=== PATIENT | female | born 1960 | race Caucasian/White ===

== ENCOUNTER → 2016-06-09 | Outpatient (REF) | payer OTHER ==
[~2016-06-09] MED LIST: /DULO30CA PO; /FENT75PA TD; /LANS30GR PO; /ONDA4TA PO; AMIT25TA2 PO; CALCIUM MAGNESIUM PO; CETI5TAB2 OR; COLA100C2 PO; COMPAZINE PR; EXCETAB OR; FAMO20TA2 PO; FLEXERIL PO; FLOV50AE; GLUC500T PO; GLYCOLAX POWDER PO; GLYCOPYRROLATE PO; HYDR25TA6 PO; LIDO5DIS PO; METH10TA2 PO; NEUR100C PO; SENNSYP PO; ULTRTA PO; [UNRECOGNIZED DRUG - CODE] PV; [UNRECOGNIZED DRUG - OTHER]; [UNRECOGNIZED DRUG - OTHER] PO; [UNRECOGNIZED DRUG - OTHER] TD
[2016-06-09 12:29] LABS: MEAN CORPUSCULAR HEMOGLOBIN 28.8 pg (27.0-33.0); MEAN CORPUSCULAR HGB CONC 32.8 g/dl (32.0-36.5); MEAN CORPUSCULAR VOLUME 87.8 fl (80.0-96.0); RED CELL DISTRIBUTION WIDTH 14.6 % (11.5-14.5); WHITE BLOOD COUNT 9.9 K/mm3 (4.0-10.0)
[2016-06-09 12:38] LABS: CALCIUM LEVEL 9.1 MG/DL (8.5-10.1); CREATININE FOR GFR 1.19 MG/DL (0.55-1.02); GLOMERULAR FILTRATION RATE 50.1 (>51); POTASSIUM SERUM 3.8 MEQ/L (3.5-5.1)
== END | disposition home or self-care (01) ==
LOC: M SFHCCLAY 11:08
PROVIDERS: ATTEND Family Medicine
DX: J40 Bronchitis, not specified as acute or chronic (principal); M79.1 Myalgia; G90.50 Complex regional pain syndrome I, unspecified; E78.2 Mixed hyperlipidemia

== ENCOUNTER → 2016-10-27 | Outpatient (REF) | payer OTHER | LOC: M SFHCCLAY 13:52 | PROVIDERS: ATTEND Family Medicine | DX: L30.9 Dermatitis, unspecified (principal) ==

== ENCOUNTER → 2017-11-09 | Outpatient (REF) | payer OTHER ==
[2017-11-09 12:11] LABS: ALBUMIN 4.2 GM/DL (3.2-5.2); ALBUMIN/GLOBULIN RATIO 1.14 (1.00-1.93); ALKALINE PHOSPHATASE 110 U/L (45-117); ALT/SGPT 20 U/L (12-78); ANION GAP 8 MEQ/L (8-16); AST/SGOT 13 U/L (7-37); BILIRUBIN,TOTAL 0.6 MG/DL (0.2-1.0); BLOOD UREA NITROGEN 19 MG/DL (7-18); CALCIUM LEVEL 9.1 MG/DL (8.5-10.1); CARBON DIOXIDE LEVEL 25 MEQ/L (21-32); CHLORIDE LEVEL 107 MEQ/L (98-107); CHOLESTEROL LEVEL 221 MG/DL (<200); CHOLESTEROL RISK RATIO 4.702 (<5); CREATININE FOR GFR 1.17 MG/DL (0.55-1.30); GLOMERULAR FILTRATION RATE 50.9 (>51); GLUCOSE, FASTING 92 MG/DL (70-100); HDL CHOLESTEROL 47 MG/DL (>40); LDL CHOLESTEROL 138.8 MG/DL (<100); NON-HDL-C 174 MG/DL; SODIUM LEVEL 140 MEQ/L (136-145); TOTAL PROTEIN 7.9 GM/DL (6.4-8.2); TRIGLYCERIDES LEVEL 176 MG/DL (<150)
== END ==
LOC: M SFHCCLAY 09:19
DX: G90.50 Complex regional pain syndrome I, unspecified (principal); E78.2 Mixed hyperlipidemia
CPT/HCPCS: 84443

== ENCOUNTER → 2017-11-23 | Outpatient (CLI) | payer OTHER | LOC: M RAD 10:12 | DX: M54.17 Radiculopathy, lumbosacral region (principal); E78.2 Mixed hyperlipidemia | CPT/HCPCS: 72148 ==

== ENCOUNTER → 2018-03-20 | Outpatient (REF) | payer OTHER | LOC: M SFHCCLAY 08:32 | DX: M19.90 Unspecified osteoarthritis, unspecified site (principal); I10 Essential (primary) hypertension ==

== ENCOUNTER → 2019-08-07 | Outpatient (CLI) | payer OTHER ==
[~2019-08-07] MED LIST changes: -/DULO30CA PO; -/FENT75PA TD; -/ONDA4TA PO; +CYMB1CAP5 PO; +FENT1DIS16 TD; +ONDA-1 PO
== END ==
LOC: M LABSMTC 11:01
PROVIDERS: ATTEND Family Medicine
DX: Z11.59 Encounter for screening for other viral diseases (principal); Z20.828 Contact with and (suspected) exposure to other viral communicable diseases

== ENCOUNTER → 2020-04-12 | Outpatient (CLI) | payer OTHER | LOC: M LABSMTC 14:07 | PROVIDERS: ATTEND Family Medicine | DX: Z20.828 Contact with and (suspected) exposure to other viral communicable diseases (principal) ==

== ENCOUNTER → 2020-05-20 | Outpatient (REF) | payer OTHER ==
[2020-05-20 16:20] LABS: HEMATOCRIT 38.5 % (36.0-47.0); HEMOGLOBIN 12.3 g/dl (12.0-15.5); MEAN CORPUSCULAR HEMOGLOBIN 29.5 pg (27.0-33.0); MEAN CORPUSCULAR HGB CONC 31.9 g/dl (32.0-36.5); MEAN CORPUSCULAR VOLUME 92.3 fl (80.0-96.0); PLATELET COUNT, AUTOMATED 247 10^3/uL (150-450); RED BLOOD COUNT 4.17 10^6/uL (4.00-5.40); WHITE BLOOD COUNT 7.5 10^3/uL (4.0-10.0)
[2020-05-20 16:44] LABS: ALBUMIN 4.1 GM/DL (3.2-5.2); BILIRUBIN,TOTAL 0.4 MG/DL (0.2-1.0); CALCIUM LEVEL 9.4 MG/DL (8.5-10.1); CREATININE FOR GFR 1.04 MG/DL (0.55-1.30); GLOMERULAR FILTRATION RATE 57.9 (>51); POTASSIUM SERUM 4.6 MEQ/L (3.5-5.1); TOTAL PROTEIN 7.4 GM/DL (6.4-8.2)
== END ==
LOC: M SFHCCLAY 09:51
PROVIDERS: ATTEND Family Medicine
DX: G90.50 Complex regional pain syndrome I, unspecified (principal); F33.40 Major depressive disorder, recurrent, in remission, unspecified; K21.00 Gastro-esophageal reflux disease with esophagitis, without bleeding; I10 Essential (primary) hypertension; M79.7 Fibromyalgia

== ENCOUNTER → 2021-04-08 | Outpatient (REF) | payer OTHER ==
[2021-04-08 16:25] LABS: BASO % 0.5 % (0.0-1.0); EOS # 0.2 10^3/uL (0.0-0.5); EOS % 2.2 % (0.0-3.0); HEMATOCRIT 38.1 % (36.0-47.0); HEMOGLOBIN 12.4 g/dl (12.0-15.5); LYMPH # 2.7 10^3/uL (1.5-5.0); LYMPH % 30.8 % (24.0-44.0); MEAN CORPUSCULAR HEMOGLOBIN 30.1 pg (27.0-33.0); MEAN CORPUSCULAR HGB CONC 32.5 g/dl (32.0-36.5); MEAN CORPUSCULAR VOLUME 92.5 fl (80.0-96.0); MONO # 0.5 10^3/uL (0.0-0.8); MONO % 5.8 % (2.0-8.0); NEUTROPHILS # 5.3 10^3/uL (1.5-8.5); NEUTROPHILS % 60.4 % (36.0-66.0); PLATELET COUNT, AUTOMATED 299 10^3/uL (150-450); RED BLOOD COUNT 4.12 10^6/uL (4.00-5.40); WHITE BLOOD COUNT 8.8 10^3/uL (4.0-10.0)
[2021-04-08 16:46] LABS: ALBUMIN 4.2 GM/DL (3.2-5.2); BILIRUBIN,TOTAL 0.3 MG/DL (0.2-1.0); C REACTIVE PROTEIN QUANTITATIV 0.34 MG/DL (0.00-0.30); CALCIUM LEVEL 9.5 MG/DL (8.5-10.1); CREATININE FOR GFR 1.15 MG/DL (0.55-1.30); GLOMERULAR FILTRATION RATE 51.4 (>51); POTASSIUM SERUM 3.3 MEQ/L (3.5-5.1); TOTAL PROTEIN 7.5 GM/DL (6.4-8.2)
[2021-04-08 16:53] LABS: ERYTHROCYTE SEDIMENTATION RATE 17 mm/hr (0-30)
[2021-04-11 23:07] LABS: ANA (HEP2) Negative (.); CYCLIC CITRULLINATED PEPTIDE 6 units (0-19)
== END ==
LOC: M SFHCCLAY 11:23
PROVIDERS: ATTEND Family Medicine
DX: G90.50 Complex regional pain syndrome I, unspecified (principal); I73.00 Raynaud's syndrome without gangrene; I10 Essential (primary) hypertension

== ENCOUNTER → 2021-12-14 | Outpatient (REF) | payer OTHER ==
[2021-12-14 11:47] LABS: BASO # 0.1 10^3/uL (0.0-0.2); BASO % 0.7 % (0.0-1.0); EOS # 0.1 10^3/uL (0.0-0.5); HEMATOCRIT 39.9 % (36.0-47.0); HEMOGLOBIN 13.3 g/dl (12.0-15.5); LYMPH # 2.7 10^3/uL (1.5-5.0); LYMPH % 30.9 % (24.0-44.0); MEAN CORPUSCULAR HGB CONC 33.3 g/dl (32.0-36.5); MONO # 0.4 10^3/uL (0.0-0.8); MONO % 4.6 % (2.0-8.0); NEUTROPHILS # 5.4 10^3/uL (1.5-8.5); NEUTROPHILS % 62.5 % (36.0-66.0); PLATELET COUNT, AUTOMATED 296 10^3/uL (150-450); RED BLOOD COUNT 4.29 10^6/uL (4.00-5.40); WHITE BLOOD COUNT 8.6 10^3/uL (4.0-10.0)
[2021-12-14 12:54] LABS: ALBUMIN 4.3 GM/DL (3.2-5.2); BILIRUBIN,TOTAL 0.4 MG/DL (0.2-1.0); CALCIUM LEVEL 9.7 MG/DL (8.8-10.2); CHOLESTEROL RISK RATIO 4.36 (<5); CREATININE FOR GFR 1.35 MG/DL (0.55-1.30); GLOMERULAR FILTRATION RATE 42.6 (>45); POTASSIUM SERUM 3.3 MEQ/L (3.5-5.1); TOTAL PROTEIN 7.7 GM/DL (6.4-8.2)
== END ==
LOC: M SFHCCLAY 08:48
PROVIDERS: ATTEND Family Medicine
DX: Z20.9 Contact with and (suspected) exposure to unspecified communicable disease (principal)

== ENCOUNTER → 2022-04-07 | Outpatient (REF) | payer OTHER ==
[2022-04-07 13:37] LABS: BILIRUBIN,TOTAL 0.4 MG/DL (0.3-1.2); CALCIUM LEVEL 9.5 MG/DL (8.3-10.6); CREATININE FOR GFR 1.06 MG/DL (0.55-1.30); GLOMERULAR FILTRATION RATE 56.3 (>45); POTASSIUM SERUM 3.7 MMOL/L (3.5-5.1); TOTAL PROTEIN 7.5 G/DL (5.7-8.2)
== END ==
LOC: M SFHCCLAY 09:40
PROVIDERS: ATTEND Family Medicine
DX: F33.40 Major depressive disorder, recurrent, in remission, unspecified (principal); I10 Essential (primary) hypertension; E87.6 Hypokalemia

== ENCOUNTER → 2022-08-11 | Outpatient (CLI) | payer OTHER | LOC: M CLY 11:49 | PROVIDERS: ATTEND Family Medicine | DX: U09.9 Post COVID-19 condition, unspecified (principal); R06.00 Dyspnea, unspecified ==

== ENCOUNTER → 2023-01-30 | Outpatient (REF) | payer OTHER ==
[2023-01-30 12:19] LABS: BASO # 0.1 10^3/uL (0.0-0.2); BASO % 0.5 % (0.0-1.0); EOS # 0.1 10^3/uL (0.0-0.5); HEMATOCRIT 40.7 % (36.0-47.0); HEMOGLOBIN 13.7 g/dl (12.0-15.5); LYMPH # 2.9 10^3/uL (1.5-5.0); LYMPH % 29.4 % (24.0-44.0); MEAN CORPUSCULAR HEMOGLOBIN 31.9 pg (27.0-33.0); MEAN CORPUSCULAR HGB CONC 33.7 g/dl (32.0-36.5); MEAN CORPUSCULAR VOLUME 94.9 fl (80.0-96.0); MONO # 0.5 10^3/uL (0.0-0.8); MONO % 5.2 % (2.0-8.0); NEUTROPHILS # 6.3 10^3/uL (1.5-8.5); NEUTROPHILS % 63.7 % (36.0-66.0); PLATELET COUNT, AUTOMATED 259 10^3/uL (150-450); RED BLOOD COUNT 4.29 10^6/uL (4.00-5.40); WHITE BLOOD COUNT 9.8 10^3/uL (4.0-10.0)
[2023-01-30 12:58] LABS: THYROID STIMULATING HORMONE 3.27 uIU/ML (0.55-4.78)
[2023-01-30 13:07] LABS: BILIRUBIN,TOTAL 0.4 MG/DL (0.3-1.2); CALCIUM LEVEL 9.5 MG/DL (8.3-10.6); CHOLESTEROL RISK RATIO 6.28 (<5); CREATININE FOR GFR 1.1 MG/DL (0.55-1.30); GLOMERULAR FILTRATION RATE 53.8 (>45); HDL CHOLESTEROL 43.6 MG/DL (>40); LDL CHOLESTEROL 174.8 MG/DL (<100); NON-HDL-C 230.4 MG/DL; POTASSIUM SERUM 3.8 MMOL/L (3.5-5.1); TOTAL PROTEIN 7.2 G/DL (5.7-8.2)
== END ==
LOC: M SFHCCLAY 08:04
PROVIDERS: ATTEND Family Medicine
DX: I10 Essential (primary) hypertension (principal); G90.50 Complex regional pain syndrome I, unspecified; E78.2 Mixed hyperlipidemia

== ENCOUNTER → 2024-06-19 | Outpatient (REF) | payer OTHER ==
[2024-06-19 19:18] LABS: ALBUMIN 4.3 G/DL (3.2-5.2); BILIRUBIN,TOTAL 0.5 MG/DL (0.3-1.2); CHOLESTEROL RISK RATIO 6.16 (<5); CREATININE FOR GFR 1.15 MG/DL (0.55-1.30); GLOMERULAR FILTRATION RATE 50.7 (>45); HDL CHOLESTEROL 44.1 MG/DL (>40); LDL CHOLESTEROL 170.1 MG/DL (<100); NON-HDL-C 227.9 MG/DL; POTASSIUM SERUM 3.6 MMOL/L (3.5-5.1); TOTAL PROTEIN 7.8 G/DL (5.7-8.2)
[2024-06-25 13:58] LABS: HEMOGLOBIN A1c 4.9 % (4.0-6.0)
== END ==
LOC: M SFHCCLAY 10:27
PROVIDERS: ATTEND Physician Assistant
DX: G90.50 Complex regional pain syndrome I, unspecified (principal); F33.40 Major depressive disorder, recurrent, in remission, unspecified; I10 Essential (primary) hypertension; E78.2 Mixed hyperlipidemia; K21.9 Gastro-esophageal reflux disease without esophagitis

== ENCOUNTER → 2024-06-19 | Outpatient (CLI) | payer OTHER | LOC: M CLY 10:40 | PROVIDERS: ATTEND Physician Assistant | DX: R06.09 Other forms of dyspnea (principal) ==

== ENCOUNTER → 2024-07-30 | Outpatient (CLI) | payer OTHER ==
[2024-07-30 11:38] LABS: ALBUMIN 4.5 G/DL (3.2-5.2); BILIRUBIN,DIRECT 0.2 MG/DL (<0.4); BILIRUBIN,TOTAL 0.5 MG/DL (0.3-1.2); CHOLESTEROL RISK RATIO 4.29 (<5); HDL CHOLESTEROL 47.5 MG/DL (>40); LDL CHOLESTEROL 114.5 MG/DL (<100); NON-HDL-C 156.5 MG/DL; TOTAL PROTEIN 7.7 G/DL (5.7-8.2)
== END ==
LOC: M CARPUL 08:15
PROVIDERS: ATTEND Physician Assistant
DX: R06.09 Other forms of dyspnea (principal)